=== PATIENT | male | born 1960 | race Caucasian/White ===

== ENCOUNTER 2017-01-03 10:57 | Inpatient (IN) | payer OTHER, MEDICAID ==
[~2017-01-03] VITALS: Ht 170.2 cm; Wt 83.0 kg
[2017-01-03 11:00] VITALS: BP 131/81
--- NOTE | 2017-01-03 11:05 | NUR ---
PT PLACED IN BED 5 BY EMS.
--- NOTE | 2017-01-03 11:06 | NUR ---
[place] [employer] at bedside.
--- NOTE | 2017-01-03 11:14 | NUR ---
56/M biba accompanied with [place] [employer], Officer Dania. Pt in custody and a pre book. Pt c/o chest pain, heaviness, pressure, constant, 7/10. Pt states he is living at [facility] for [facility]. Pt states "I'm not sure if they gave me nitro this morning or last night." Pt was given ASA 81mg by EMS. Pt states the pain is the same and worsening. Pt has hx of stent placement, last placement was last November 2015. Pt states "They put 8 of them in." Patient is AOX4, clear speech, skin warm and dry, normal in color for ethnicity. VSS at this time. EKG done and shown to Dr. Yousif.
[2017-01-03] MEDS ORDERED: FLUTICASON0.05 MG/A1 INH (11:15)
[2017-01-03] MEDS ORDERED: ASPIRIN ADULT L81 M1 PO (11:15)
[2017-01-03] MEDS ORDERED: ATENOLOL50 M1 PO (11:15)
[2017-01-03] MEDS ORDERED: IMDUR60 M1 PO (11:15)
[2017-01-03] MEDS ORDERED: NITROSTAT0.4 M1 SL (11:15)
[2017-01-03] MEDS ORDERED: PLAVIX75 M1 PO (11:15)
[2017-01-03] MEDS ORDERED: RANEXA1000 M1 PO (11:15)
[2017-01-03] MEDS ORDERED: LIPITOR80 MG PO (11:15)
[2017-01-03] MEDS ORDERED: NORCO 5/325 MG1 TAB PO (11:15)
[2017-01-03] MEDS ORDERED: NEURONTIN300 M1 PO (11:15)
[2017-01-03] MEDS ORDERED: NORVASC10 MG PO (11:15)
[2017-01-03] MEDS ORDERED: ASPIRIN 81 MG TAB.CHEW PO ONE (11:30)
[2017-01-03] MEDS ORDERED: METOPROLOL 25 MG TAB PO ONE (11:30)
[2017-01-03] MEDS ORDERED: NACL 0.9% 1,000 ML IV ONE (11:30)
--- NOTE | 2017-01-03 11:33 | NUR ---
X-Ray at bedside.
[2017-01-03] MEDS ORDERED: NITROGLYCERIN 2% 1 GM PKT TP ONE (11:45)
--- NOTE | 2017-01-03 12:02 | NUR ---
Pt continues to c/o unrelieved chest pain after receiving medications. Dr. Yousif made aware.
--- NOTE | 2017-01-03 12:04 | NUR ---
Pt states "It feels like I have a fat baby on my chest." VSS. Patient is calm and relaxed and rubbing his chest with a fist.
--- NOTE | 2017-01-03 12:10 | NUR ---
Pt continues to c/o unrelieved chest pain and now is c/o nausea. Pt states "The pain is making me nauseous." Dr. Yousif made aware.
[2017-01-03] MEDS ORDERED: ONDANSETRON 4 MG/2 ML VIAL IVP ONE (12:15)
[2017-01-03] MEDS ORDERED: MORPHINE SULFATE 2 MG/ML SYR IVP ONE (12:15)
--- NOTE | 2017-01-03 12:30 | NUR ---
MEDICATION ADMINISTERED ORDERED.
--- NOTE | 2017-01-03 12:55 | NUR ---
Patient was escorted to the restroom by myself and Kamari AGUIRRE. Pt had to have an BM.
--- NOTE | 2017-01-03 12:57 | NUR ---
PT placed back into bed 5, pt handcuffed to bed by Officer Dania. Pt states "Tell the doctor the morphine wore, I don't feel good." VSS. Pt does not appear to be in any distress.
--- NOTE | 2017-01-03 14:06 | NUR ---
Patient will be admitted to care of Dr. Serna. Admited to TELE. Will go to room 107-A. Belongings list completed. Report to Amaury TOUSSAINT.
[2017-01-03 14:30] VITALS: BP 124/72
--- NOTE | 2017-01-03 14:30 | NUR ---
PATIENT ARRIVED FROM THE ER WITH DX OF CHEST PAIN. PATIENT AWAKE, ALERT, ORIENTED AND AMBULATORY. NO S/S OF DISTRESS NOTED. PT C/O OF 8/10 CHEST PAIN. PATIENT WAS MEDICATED IN ER. WAITING FOR ORDERS FROM THE ADMITTING DOCTOR. IV LINE NOTED TO THE LEFT HAND WITH IVF INFUSING WELL. PATIENT PLACED ON TELE MONITORING. BED LOWERED WITH CALL LIGHT WITHIN REACH. WILL CONTINUE TO MONITOR
[2017-01-03 16:00] VITALS: BP 134/111
--- NOTE | 2017-01-03 17:00 | NUR ---
SPOKE WITH DR DIAZ AND INFORMED HIM ABOUT THE PATIENT'S C/O CHEST PAIN. ORDERS RECEIVED
[2017-01-03] MEDS ORDERED: HYDROcodone/APAP 5/325 MG 1 TAB TAB PO PRN (18:15)
[2017-01-03] MEDS ORDERED: MORPHINE SULFATE 2 MG/ML SYR IVP PRN (18:45)
[2017-01-03] MEDS ORDERED: MORPHINE SULFATE 4 MG/ML SYR IVP SCH (18:50)
--- NOTE | 2017-01-03 19:30 | NUR ---
RECEIVED REPORT FROM SIRIA TOUSSAINT AT BEDSIDE. PT IS ALERT AWAKE ORIENTED X4. INITIAL ASSESSMENT DONE. NO S/S OF RESPIRATORY DISTRESS OR SOB NOTED. NO C/O PAIN OR ANY DISCOMFORT AT THIS TIME. PLAN OF CARE REVIEWED TO PT AND VERBALIZED UNDERSTANDING. CALL LIGHT WITHIN REACH. WILL CONTINUE TO MONITOR.
--- NOTE | 2017-01-03 19:35 | NUR ---
PATIENT REPORT GIVEN AT BEDSIDE. ENDORSED PATIENT IN STABLE CONDITION
[2017-01-03] MEDS ORDERED: NITROGLYCERIN 0.4 MG TAB SL PRN (19:40)
[2017-01-03] MEDS ORDERED: ACETAMINOPHEN 325 MG TAB PO PRN (19:45)
[2017-01-03] MEDS ORDERED: LORazepam 2 MG/ML VIAL IVP PRN (19:45)
[2017-01-03] MEDS ORDERED: ONDANSETRON 4 MG/2 ML VIAL IVP PRN (19:45)
[2017-01-03 20:00] VITALS: BP 133/73
[2017-01-03] MEDS: RANOLAZINE 500 MG TER PO SCH (21:00)
[2017-01-03] MEDS: ATORVASTATIN 80 MG TAB PO SCH (21:00)
[2017-01-03] MEDS: GABAPENTIN 300 MG CAP PO SCH (21:22)
[2017-01-03] MEDS: MORPHINE SULFATE 2 MG/ML SYR IVP PRN (22:57)
[2017-01-04] VITALS: BP 129/71
--- NOTE | 2017-01-04 00:05 | NUR ---
PT IS SLEEPING RIGHT NOW BUT EASILY AROUSABLE. NO S/S OF ANY DISCOMFORT AT THIS TIME. ALL NEEDS ARE ATTENDED. CALL LIGHT WITHIN REACH. WILL CONTINUE TO MONITOR.
[2017-01-04] MEDS: MORPHINE SULFATE 2 MG/ML SYR IVP PRN ×6 (03:05→23:54)
[2017-01-04 04:00] VITALS: BP 125/70
--- NOTE | 2017-01-04 05:15 | NUR ---
AM CARE RENDERED. BED LINEN CHANGED. INSTRUCTED PT TO REPOSITION. KEPT CLEAN AND DRY. CALL LIGHT WITHIN REACH. WILL CONTINUE TO MONITOR.
--- NOTE | 2017-01-04 07:26 | NUR ---
PT HAS NO S/S OF ANY DISCOMFORT. PLAN OF CARE ENDORSE TO AM SHIFT NURSE FOR CONTINUITY OF CARE.
--- NOTE | 2017-01-04 07:30 | NUR ---
RECEIVED REPORT FROM NIGHT NURSE. PT RESTING COMFORTABLY IN BED. AOX4, ABLE TO VERBALIZE NEEDS. RECORD CHANGER TESTER IN PLACE. PT C/O PAIN, ALREADY MEDICATED PER NIGHT NURSE. IV ACCESS ASYMPTOMATIC, PATENT AND INTACT. IV SALINE LOCKED. REVIEWED AND DISCUSSED PLAN OF CARE WITH PT, PT VERBALIZES UNDERSTANDING. SAFETY MEASURES ENSURED. CALL LIGHT WITHIN REACH. WILL CONTINUE TO MONITOR.
[2017-01-04 07:49] VITALS: BP 124/75
--- NOTE | 2017-01-04 07:57 | NUR ---
PATIENT HAS BEEN SCREENED AND CATEGORIZED MODERATE NUTRITION RISK. PATIENT WILL BE SEEN WITHIN 3-5 DAYS OF ADMISSION. 01/06/17-01/08/[address]
[2017-01-04] MEDS: FLUTICASONE NASAL 50 MCG/ACTUATION 16 GM BTL NS SCH (09:00)
[2017-01-04] MEDS: ATENOLOL 50 MG TAB PO SCH (09:00)
[2017-01-04] MEDS: ASPIRIN 81 MG TAB.CHEW PO SCH (09:45)
[2017-01-04] MEDS: CLOPIDOGREL 75 MG TAB PO SCH (09:45)
[2017-01-04] MEDS: GABAPENTIN 300 MG CAP PO SCH ×2 (09:46→20:19)
[2017-01-04] MEDS: amLODIPine 5 MG TAB PO SCH (09:47)
[2017-01-04] MEDS: ISOSORBIDE MONONITRATE 30 MG TABER PO SCH (09:47)
[2017-01-04] MEDS: RANOLAZINE 500 MG TER PO SCH ×2 (09:49→20:20)
--- NOTE | 2017-01-04 09:50 | NUR ---
HELD ATENOLOL DUE TO LOW PULSE. REMAINING MEDICATIONS ADMINISTERED WITH EDUCATION. PT RESTING IN BED. SAFETY MEASURES ENSURED. WILL CONTINUE TO MONITOR.
[2017-01-04] MEDS ORDERED: POTASSIUM CHLORIDE 10 MEQ TABER PO SCH (10:57)
[2017-01-04 11:59] VITALS: BP 106/65
--- NOTE | 2017-01-04 12:00 | NUR ---
PT RESTING IN BED, CONDITION STABLE. ALL NEEDS MET. SAFETY MEASURES IN PLACE. WILL CONTINUE TO MONITOR.
--- NOTE | 2017-01-04 14:00 | NUR ---
PT RESTING QUIETLY IN BED, NO S/S DISTRESS.
--- NOTE | 2017-01-04 15:31 | NUR ---
CM NOTE FAXED PATIENT INFORMATION REQUESTED TO [facility] ATTN: LINDA FAX# [phone] PH# [phone]
[2017-01-04 16:00] VITALS: BP 116/71
[2017-01-04] MEDS: HYDROcodone/APAP 5/325 MG 1 TAB TAB PO PRN (16:59)
--- NOTE | 2017-01-04 16:59 | NUR ---
PT REQUESTING NORCO FOR PERSISTENT PAIN. SEE PAIN ASSESSMENT. NORCO GIVEN WITH EDUCATION. PT BP 116/70. WILL CONTINUE TO MONITOR.
--- NOTE | 2017-01-04 17:06 | NUR ---
PT REQUESTING TO BE TRANSFERRED TO [facility], INSTEAD OF [facility]. MESSAGE LEFT FOR [facility] [employer]CT PROFESSOR OF VOICE.
--- NOTE | 2017-01-04 19:30 | NUR ---
RECEIVED REPORT FROM RAFAL TOUSSAINT AT BEDSIDE. PT IS ALERT AWAKE ORIENTED X4. INITIAL ASSESSMENT DONE. NO S/S OF RESPIRATORY DISTRESS OR SOB NOTED. C/O CHEST PAIN SCALING 6/10. WILL GIVE PRN MEDICATION FOR CHEST PAIN. PLAN OF CARE REVIEWED TO PT AND VERBALIZED UNDERSTANDING. CALL LIGHT WITHIN REACH. WILL CONTINUE TO MONITOR.
--- NOTE | 2017-01-04 19:30 | NUR ---
CONDITION STABLE, ENDORSED PLAN OF CARE TO REGULATORY CONSULTANT RN.
[2017-01-04 20:00] VITALS: BP 122/82
[2017-01-04] MEDS: ATORVASTATIN 80 MG TAB PO SCH (20:19)
[2017-01-05] VITALS: BP 126/78
[2017-01-05] MEDS: MORPHINE SULFATE 2 MG/ML SYR IVP PRN ×6 (03:49→23:44)
[2017-01-05 04:00] VITALS: BP 129/85
--- NOTE | 2017-01-05 05:15 | NUR ---
AM CARE RENDERED. BED LINEN CHANGED. INSTRUCTED PT TO REPOSITION. KEPT CLEAN AND DRY. CALL LIGHT WITHIN REACH. WILL CONTINUE TO MONITOR.
[2017-01-05] MEDS: HYDROcodone/APAP 5/325 MG 1 TAB TAB PO PRN ×3 (05:39→21:36)
--- NOTE | 2017-01-05 07:25 | NUR ---
PT HAS NO S/S OF ANY DISCOMFORT. PLAN OF CARE ENDORSE TO AM SHIFT NURSE FOR CONTINUITY OF CARE.
--- NOTE | 2017-01-05 07:26 | NUR ---
RECEIVED REPORT AT PT BEDSIDE BY BREANA MAK. PATIENT ASLEEP, EASILY AWAKENS, C/O CHEST TIGHTNESS NOT RELIEVED BY NITRO PATCH. WILL MEDICATE ORDERED. AAOX4. AMBULATORY. IV SITE PATENT AND INTACT. NO S/S OF RESPIRATORY DISTRESS. ORIENTED PT TO CALL LIGHT AND HOSPITAL ENVIRONMENT. WILL CONTINUE TO MONITOR.
[2017-01-05 08:00] VITALS: BP 131/72
[2017-01-05] MEDS: ATENOLOL 50 MG TAB PO SCH (09:00)
[2017-01-05] MEDS: ISOSORBIDE MONONITRATE 30 MG TABER PO SCH (09:00)
[2017-01-05] MEDS: CLOPIDOGREL 75 MG TAB PO SCH (09:01)
[2017-01-05] MEDS: FLUTICASONE NASAL 50 MCG/ACTUATION 16 GM BTL NS SCH (09:01)
[2017-01-05] MEDS: GABAPENTIN 300 MG CAP PO SCH ×2 (09:01→20:39)
[2017-01-05] MEDS: RANOLAZINE 500 MG TER PO SCH ×2 (09:01→20:39)
[2017-01-05] MEDS: ASPIRIN 81 MG TAB.CHEW PO SCH (09:01)
[2017-01-05] MEDS: amLODIPine 5 MG TAB PO SCH (09:01)
--- NOTE | 2017-01-05 11:15 | NUR ---
MARY CARRERA SPOKE WITH CHANTELL OF [facility] MAINTENANCE TECHNICIAN PH# [phone] TO CONFIRM PATIENT'S SCHEDULE FOR CARDIAC CATH ON 01/06/17. SPOKE WITH FREDA OF [facility] PH# [phone] TO SET UP PATIENT TRANSPORT. PATIENT WILL BE PICKED UP BY ALO SAMAYOA, ON 01/06/17Monday 10:30 AM GOING TO [facility] MAINTENANCE TECHNICIAN BUT WILL HAVE TO STOP BY THEIR ER FIRST. MARY IRBY AWARE EXT [phone]. Addendum: 01/05/17 at 1502 by Kamille Ngo CM NURSE ROSANNA SCHERER Addendum: 01/05/17 at 1510 by Kamille Ngo CM NUMBER TO CALL FOR REPORT AT [facility] MAINTENANCE TECHNICIAN PH# [phone]
[2017-01-05 12:00] VITALS: BP 122/72
--- NOTE | 2017-01-05 12:20 | NUR ---
PT SLEEPING. NO S/S OF ACUTE DISTRESS. CALL LIGHT WITHIN REACH. WILL CONTINUE TO MONITOR.
--- NOTE | 2017-01-05 13:08 | NUR ---
PATIENT SEEN BY DR. JOE AQUINO AT PT BEDSIDE. PT DISCUSSED WITH MD ON REQUESTING TO GO TO [facility] AND REFUSING [facility]. DR. DIAZ SPOKE WITH [facility]. WILL CONTINUE TO MONITOR.
[2017-01-05] MEDS ORDERED: MUPIROCIN 2% OINT 22 GM TUBE TP SCH (14:25)
--- NOTE | 2017-01-05 15:29 | NUR ---
1345 MET WITH PT AT BEDSIDE AND EXPLAINED TO HIM THAT THERE IS NOT AN ACCEPTING PHYSICIAN AT [place] AND THAT DR Dick DIAZ THE INS[employer] IS THE PHYSICIAN WHO WILL TREAT HIM AT [facility]. PT VOICED HIS UNDERSTANDING AND IN AGREEMENT TO GO TO [facility] FOR CARDIAC CATH. PT DID VENT THAT HE IS SOMEWHAT ANXIOUS HE HAS HAD OPEN HEART SURGERY IN THE PAST AND 8 STENT PLACEMENTS.
[2017-01-05 16:00] VITALS: BP 114/72
--- NOTE | 2017-01-05 17:00 | NUR ---
PT RESTING IN BED. NO S/S OF ACUTE DISTRESS NOTED.
--- NOTE | 2017-01-05 19:12 | NUR ---
SBAR REPORT GIVEN TO BREANA MAK AT PT BEDSIDE. NO S/S OF ACUTE DISTRESS.
--- NOTE | 2017-01-05 19:30 | NUR ---
RECEIVED REPORT FROM ROSANNA TOUSSAINT AT BEDSIDE. PT IS ALERT AWAKE ORIENTED X4. INITIAL ASSESSMENT DONE. NO S/S OF RESPIRATORY DISTRESS OR SOB NOTED. C/O CHEST PAIN SCALING 6/10. WILL GIVE PRN MEDICATION FOR CHEST PAIN ORDERED. PLAN OF CARE REVIEWED TO PT AND VERBALIZED UNDERSTANDING. CALL LIGHT WITHIN REACH. WILL CONTINUE TO MONITOR.
[2017-01-05 20:00] VITALS: BP 127/73
[2017-01-05] MEDS: ATORVASTATIN 80 MG TAB PO SCH (20:38)
[2017-01-06] VITALS: BP 124/77
[2017-01-06 03:44] VITALS: BP 119/75
[2017-01-06 04:00] VITALS: BP 119/75
[2017-01-06] MEDS: MORPHINE SULFATE 2 MG/ML SYR IVP PRN ×2 (04:09→08:55)
--- NOTE | 2017-01-06 05:30 | NUR ---
AM CARE RENDERED. BED LINEN CHANGED. INSTRUCTED PT TO REPOSITION. KEPT CLEAN AND DRY. CALL LIGHT WITHIN REACH. WILL CONTINUE TO MONITOR.
--- NOTE | 2017-01-06 07:05 | NUR ---
RECEIVED REPORT FROM NIGHT NURSE. PT IS AAOX4, ON ROOM AIR, IV TO LEFT HAND 22G SALINE LOCK PATENT AND INTACT. SKIN INTACT. INITIAL ASSESSMENT COMPLETED. ALL SAFETY PRECAUTIONS MET, CALL LIGHT WITHIN RAECH. WILL CONTINUE TO MONITOR.
--- NOTE | 2017-01-06 07:05 | NUR ---
PT HAS NO S/S OF ANY DISCOMFORT. PLAN OF CARE ENDORSE TO AM SHIFT NURSE FOR CONTINUITY OF CARE.
[2017-01-06] MEDS ORDERED: NITROGLYCERIN 0.4 MG TAB SL PRN (07:23)
[2017-01-06 08:00] VITALS: BP 125/73
[2017-01-06] MEDS: ISOSORBIDE MONONITRATE 30 MG TABER PO SCH (08:51)
[2017-01-06] MEDS: ASPIRIN 81 MG TAB.CHEW PO SCH (08:51)
[2017-01-06] MEDS: CLOPIDOGREL 75 MG TAB PO SCH (08:51)
[2017-01-06] MEDS: GABAPENTIN 300 MG CAP PO SCH (08:51)
[2017-01-06] MEDS: ATENOLOL 50 MG TAB PO SCH (08:52)
[2017-01-06] MEDS: FLUTICASONE NASAL 50 MCG/ACTUATION 16 GM BTL NS SCH (08:52)
[2017-01-06] MEDS: RANOLAZINE 500 MG TER PO SCH (08:53)
--- NOTE | 2017-01-06 08:59 | NUR ---
DUE MEDICATIONS GIVEN. PT TOLERATED WELL. ALL NEEDS MET. CALL LIGHT WITHIN RAECH. WILL CONTINUE TO MONITOR.
[2017-01-06] MEDS ORDERED: MUPIROCIN 2% OINT 22 GM TUBE TP SCH ×2 (09:00)
[2017-01-06] MEDS: amLODIPine 5 MG TAB PO SCH (09:00)
--- NOTE | 2017-01-06 09:30 | NUR ---
CONTACTED [place] [employer]GET[employer] AT [phone] INFORMED HIM THAT PT WILL BE TRANSFERRED TO [facility]. VEGETABLE TIER VERBALIZED UNDERSTANDING.
--- NOTE | 2017-01-06 10:20 | NUR ---
CONTACTED [facility] AT [phone], GAVE REPORT TO [facility] AT [facility].
--- NOTE | 2017-01-06 10:37 | NUR ---
LATE ENTRY FOR 01/03/17 ON ADMISSION PT WAS ACCOMPANIED BY [place] [employer]. OFFICER PITA STATED THAT [place] [employer] ARE TO BE NOTIFIED WHEN PT IS READY FOR DISCHARGE. PROVIDED PHONE # [phone] BUT TO CALL TRUCK W[employer]ER FIRST AT [phone]. REQUESTED THAT PD BE NOTIFIED OF DISCHARGE AND NOT TO ALERT PT OF DISCHARGE UNTIL PD CONTACTED.
--- NOTE | 2017-01-06 10:45 | NUR ---
PT WAS PICKED UP AND TRANSFERRED VIA GURNEY IN STABLE CONDITION.
== END 2017-01-06 10:45 | disposition short-term general hospital (02) | DRG 303 ==
LOC: MED 10:57 → MTU 14:03
PROVIDERS: ADMIT Preventive Medicine Preventive Medicine/Occupational Environmental Medicine; ATTEND Preventive Medicine Preventive Medicine/Occupational Environmental Medicine
DX: I25.10 Atherosclerotic heart disease of native coronary artery without angina pectoris (principal); E87.0 Hyperosmolality and hypernatremia; I10 Essential (primary) hypertension; J45.909 Unspecified asthma, uncomplicated; E87.5 Hyperkalemia; E78.5 Hyperlipidemia, unspecified; Z98.61 Coronary angioplasty status; Z22.322 Carrier or suspected carrier of Methicillin resistant Staphylococcus aureus; Z79.899 Other long term (current) drug therapy; Z79.82 Long term (current) use of aspirin